=== PATIENT | female | born 1975 | race Caucasian/White ===

== ENCOUNTER 2018-07-01 08:31 | Emergency (ER) | payer SELFPAY ==
[~2018-07-01] VITALS: Ht 157.5 cm; Wt 80.0 kg
[~2018-07-01 08:31] MED LIST: BACTRIM DS1 TAB PO; CIPRO500 MG PO; FLEXERIL OR; KEFLEX500 M1 PO; LORTAB5 PO; NAPROSYN500 MG OR; NO HOMEMEDS; ULTRAM50 M1 PO; ULTRAM50 MG OR
[2018-07-01 09:23] LABS: HEMATOCRIT 34.5 % (37.0-47.0); HEMOGLOBIN 11.2 g/dl (12.0-16.0); IMMATURE GRANULOCYTES 0.2 % (0.0-5.0); MEAN CELL VOLUME 86.3 fL CALC (80.0-100.0); MEAN CORPUSCULAR HGB CONC 32.5 g/L CALC (32.0-36.0); NEUT# 4.62 thou/uL (2.00-7.15); RED CELL DISTRI WIDTH 15.1 % (11.5-15.5)
[2018-07-01 09:30] LABS: ANION GAP 12 (6-22 (CALC)); BUN 8 mg/dL (7-17); BUN/CREATININE RATIO 17 (12-20 (CALC)); CARBON DIOXIDE 23 mmol/l (22-30); CHLORIDE 109 mmol/l (95-108); CREATININE 0.5 mg/dL (0.5-1.0); GFR > 60 ML/MIN (>=60 (CALC)); GFR FOR AFR.AMER. > 60 ML/MIN (>=60 (CALC)); POTASSIUM 4.1 mmol/l (3.5-5.1); SODIUM 140 mmol/l (137-146)
[2018-07-01] MEDS ORDERED: PROVERA10 MG PO (14:36)
[2018-07-01 14:45] VITALS: BP 139/74
== END 2018-07-01 14:45 | disposition home or self-care (01) | DRG 761 ==
LOC: ED 08:31
PROVIDERS: Family Medicine
DX: N92.0 Excessive and frequent menstruation with regular cycle (principal); D25.9 Leiomyoma of uterus, unspecified; N83.9 Noninflammatory disorder of ovary, fallopian tube and broad ligament, unspecified; F17.210 Nicotine dependence, cigarettes, uncomplicated

== ENCOUNTER 2019-09-18 16:16 | Emergency (ER) | payer SELFPAY ==
[~2019-09-18] VITALS: Ht 157.5 cm; Wt 80.0 kg
[~2019-09-18 16:16] MED LIST changes: +PROVERA10 MG PO
[2019-09-18 17:19] LABS: URINE BILIRUBIN - DIPSTICK NEGATIVE (NEGATIVE); URINE BLOOD DIPSTICK SMALL (NEGATIVE); URINE COLOR YELLOW; URINE GLUCOSE - DIPSTICK NEGATIVE (NEGATIVE); URINE KETONE NEGATIVE (NEGATIVE); URINE LEUK ESTERASE TRACE (NEGATIVE); URINE NITRITE - DIPSTICK NEGATIVE (Negative); URINE PH 6.5 (4.5-8.0); URINE PROTEIN - DIPSTICK NEGATIVE (NEG-TRACE); URINE UROBILINOGEN - DIPSTICK 0.2 E.U./dL (0.2)
[2019-09-18 17:28] LABS: URINE SQUAMOUS EPITHELIAL CELL MODERATE EPI/hpf (0-FEW)
[2019-09-18] MEDS ORDERED: TORADOL PO (17:53)
[2019-09-18 18:07] VITALS: BP 146/93
== END 2019-09-18 18:10 | disposition home or self-care (01) | DRG 552 ==
LOC: ED 16:16
PROVIDERS: Family Medicine
DX: S33.5XXA Sprain of ligaments of lumbar spine, initial encounter (principal); F17.200 Nicotine dependence, unspecified, uncomplicated; X58.XXXA Exposure to other specified factors, initial encounter

== ENCOUNTER 2021-02-03 12:29 | Emergency (ER) | payer SELFPAY ==
[~2021-02-03] VITALS: Ht 157.5 cm; Wt 79.0 kg
[~2021-02-03 12:29] MED LIST changes: +TORADOL PO
[2021-02-03 14:07] LABS: URINE BILIRUBIN - DIPSTICK NEGATIVE (NEGATIVE); URINE BLOOD DIPSTICK SMALL (NEGATIVE); URINE COLOR YELLOW; URINE GLUCOSE - DIPSTICK NEGATIVE (NEGATIVE); URINE KETONE NEGATIVE (NEGATIVE); URINE LEUK ESTERASE NEGATIVE (NEGATIVE); URINE NITRITE - DIPSTICK NEGATIVE (Negative); URINE PH 5.5 (4.5-8.0); URINE PROTEIN - DIPSTICK NEGATIVE (NEG-TRACE); URINE SPECIFIC GRAVITY 1.015; URINE UROBILINOGEN - DIPSTICK 0.2 E.U./dL (0.2)
[2021-02-03 14:10] LABS: URINE EPITHELIAL CELLS FEW EPI/hpf (0-FEW)
[2021-02-03 14:48] LABS: IMMATURE GRANULOCYTES 0.2 % (0.0-5.0); MEAN CELL VOLUME 87.4 fL CALC (80.0-100.0); MEAN CORPUSCULAR HGB 27.7 pG CALC (26.0-32.0); MEAN CORPUSCULAR HGB CONC 31.7 g/dL CAL (32.0-36.0); NEUT# 5.09 thou/uL (2.00-7.15); RED BLOOD COUNT 4.69 mill/uL (4.20-5.60); RED CELL DISTRI WIDTH 15.5 % (11.5-15.5)
[2021-02-03 15:10] LABS: ALBUMIN 4.6 g/dL (3.2-5.0); ALKALINE PHOSPHATASE 84 u/l (38-126); ANION GAP 11 (6-22 (CALC)); BUN 7 mg/dL (7-17); BUN/CREATININE RATIO 12 (12-20 (CALC)); CARBON DIOXIDE 27 mmol/l (22-30); CHLORIDE 104 mmol/l (95-108); CREATININE 0.5 mg/dL (0.5-1.0); GFR > 60 ML/MIN (>=60 (CALC)); GFR FOR AFR.AMER. > 60 ML/MIN (>=60 (CALC)); POTASSIUM 4.2 mmol/l (3.5-5.1); SGOT/AST 30 u/l (14-36); SODIUM 138 mmol/l (137-146)
[2021-02-03 15:14] LABS: BILIRUBIN, TOTAL 0.5 mg/dL (0.0-1.4); TOTAL PROTEIN 8.1 g/dL (6.3-8.2)
[2021-02-03 17:03] VITALS: BP 148/81
[2021-02-03] MEDS ORDERED: TORADOL PO (17:07)
== END 2021-02-03 17:10 | disposition home or self-care (01) | DRG 392 ==
LOC: ED 12:29
DX: R10.31 Right lower quadrant pain (principal); R31.9 Hematuria, unspecified; F17.210 Nicotine dependence, cigarettes, uncomplicated

== ENCOUNTER 2021-08-03 13:55 | Emergency (ER) | payer SELFPAY ==
[~2021-08-03] VITALS: Ht 157.5 cm; Wt 68.2 kg
[2021-08-03 16:40] VITALS: BP 148/94
[2021-08-05] MEDS ORDERED: BACTRIM DS1 TAB PO (11:04)
== END 2021-08-03 16:40 | disposition home or self-care (01) | DRG 601 ==
LOC: ED 13:55
DX: N61.1 Abscess of the breast and nipple (principal); F17.210 Nicotine dependence, cigarettes, uncomplicated; Z91.14 Patient's other noncompliance with medication regimen

== ENCOUNTER 2021-11-30 11:56 | Emergency (ER) | payer SELFPAY ==
[~2021-11-30] VITALS: Ht 154.9 cm; Wt 77.2 kg
[2021-11-30] MEDS ORDERED: CEPHALEXIN500 MG PO (14:14)
[2021-11-30] MEDS ORDERED: BACTRIM DS1 TAB PO (14:14)
[2021-11-30 14:24] VITALS: BP 156/81
== END 2021-11-30 14:37 | disposition home or self-care (01) | DRG 601 ==
LOC: ED 11:56
DX: N61.0 Mastitis without abscess (principal); F17.210 Nicotine dependence, cigarettes, uncomplicated

== ENCOUNTER 2022-03-07 10:01 | Emergency (ER) | payer SELFPAY ==
[~2022-03-07] VITALS: Ht 154.9 cm; Wt 79.1 kg
[~2022-03-07 10:01] MED LIST changes: +CEPHALEXIN500 MG PO; +PERCOCET 5/325M1 TAB PO
[2022-03-07] MEDS ORDERED: HYZAAR1 TA1 PO (10:37)
[2022-03-07 10:45] LABS: HEMATOCRIT 46.3 % (37.0-47.0); IMMATURE GRANULOCYTES 0.1 % (0.0-5.0); MEAN CELL VOLUME 90.6 fL CALC (80.0-100.0); MEAN CORPUSCULAR HGB 29.5 pG CALC (26.0-32.0); MEAN CORPUSCULAR HGB CONC 32.6 g/dL CAL (32.0-36.0); NEUT# 4.49 thou/uL (2.00-7.15); RED BLOOD COUNT 5.11 mill/uL (4.20-5.60); RED CELL DISTRI WIDTH 13.6 % (11.5-15.5)
[2022-03-07 11:06] LABS: ALBUMIN 4.5 g/dL (3.2-5.0); ALKALINE PHOSPHATASE 91 u/l (38-126); ANION GAP 14 (6-22 (CALC)); BILIRUBIN, TOTAL 0.3 mg/dL (0.0-1.4); BUN 10 mg/dL (7-17); BUN/CREATININE RATIO 18 (12-20 (CALC)); CARBON DIOXIDE 22 mmol/l (22-30); CHLORIDE 106 mmol/l (95-108); CREATININE 0.6 mg/dL (0.5-1.0); GFR > 60 ML/MIN (>=60 (CALC)); GFR FOR AFR.AMER. > 60 ML/MIN (>=60 (CALC)); HEMOGLOBIN 15.1 g/dl (12.0-16.0); POTASSIUM 3.7 mmol/l (3.5-5.1); SGOT/AST 25 u/l (14-36); SODIUM 138 mmol/l (137-146); TOTAL PROTEIN 8.2 g/dL (6.3-8.2)
[2022-03-07 12:42] VITALS: BP 135/87
== END 2022-03-07 12:42 | disposition home or self-care (01) | DRG 313 ==
LOC: ED 10:01
PROVIDERS: Family Medicine
PROC: 0H95XZZ Drainage of Chest Skin, External Approach (ICD-10-PCS; principal; 2022-03-07)
DX: R07.9 Chest pain, unspecified (principal); N61.0 Mastitis without abscess; F17.200 Nicotine dependence, unspecified, uncomplicated

== ENCOUNTER 2022-06-27 13:06 | Emergency (ER) | payer BC ==
[2022-06-27] VITALS (7 sets, daily range): BP systolic 140–160; BP diastolic 78–115
[~2022-06-27] VITALS: Ht 154.9 cm; Wt 79.0 kg
[~2022-06-27 13:06] MED LIST changes: +HYZAAR1 TA1 PO
[2022-06-27] MEDS ORDERED: BACTRIM DS1 TAB PO ×2 (13:35→13:36)
[2022-06-27 13:40] LABS: HEMATOCRIT 44.1 % (37.0-47.0); HEMOGLOBIN 14.3 g/dl (12.0-16.0); IMMATURE GRANULOCYTES 0.2 % (0.0-5.0); MEAN CELL VOLUME 92.6 fL CALC (80.0-100.0); MEAN CORPUSCULAR HGB CONC 32.4 g/dL CAL (32.0-36.0); NEUT# 7.23 thou/uL (2.00-7.15); RED BLOOD COUNT 4.76 mill/uL (4.20-5.60); RED CELL DISTRI WIDTH 13.1 % (11.5-15.5)
[2022-06-27 14:00] LABS: ALBUMIN 4.2 g/dL (3.2-5.0); ALKALINE PHOSPHATASE 86 u/l (38-126); ANION GAP 12 (6-22 (CALC)); BILIRUBIN, TOTAL 0.3 mg/dL (0.0-1.4); BUN 11 mg/dL (7-17); BUN/CREATININE RATIO 22 (12-20 (CALC)); CARBON DIOXIDE 25 mmol/l (22-30); CHLORIDE 105 mmol/l (95-108); CREATININE 0.5 mg/dL (0.5-1.0); GFR FOR AFR.AMER. > 60 ML/MIN (>=60 (CALC)); GFR OTHER RACES > 60 ML/MIN (>=60 (CALC)); SGOT/AST 19 u/l (14-36); SODIUM 138 mmol/l (137-146); TOTAL PROTEIN 7.5 g/dL (6.3-8.2)
[2022-06-27] MEDS ORDERED: ULTRAM50 M1 PO (16:44)
[2022-06-27] MEDS ORDERED: VIBRAMYCIN100 M2 PO (16:44)
[2022-06-27] MEDS ORDERED: AMOX/K CLAV875 M1 PO (16:44)
== END 2022-06-27 17:27 | disposition left against medical advice (07) | DRG 601 ==
LOC: ED 13:06 → ED-I 16:00 → ED 17:27
PROVIDERS: Nurse Practitioner
DX: N61.1 Abscess of the breast and nipple (principal); R10.13 Epigastric pain; I10 Essential (primary) hypertension; F17.200 Nicotine dependence, unspecified, uncomplicated; Z91.19 Patient's noncompliance with other medical treatment and regimen
CPT/HCPCS: J0692; S0164

== ENCOUNTER 2023-05-15 10:03 | Emergency (ER) | payer MEDICAID ==
[2023-05-15] VITALS (12 sets, daily range): BP systolic 131–162; BP diastolic 83–100
[~2023-05-15] VITALS: Ht 154.9 cm; Wt 79.0 kg
[~2023-05-15 10:03] MED LIST changes: +AMOX/K CLAV875 M1 PO; +VIBRAMYCIN100 M2 PO
[2023-05-15 11:27] LABS: BASO% 0.5 % (0-3); IMMATURE GRANULOCYTES 0.1 % (0.0-5.0); MEAN CELL VOLUME 90.9 fL CALC (80.0-100.0); MEAN CORPUSCULAR HGB 29.6 pG CALC (26.0-32.0); MEAN CORPUSCULAR HGB CONC 32.6 g/dL CAL (32.0-36.0); MONO% 7.2 % (2-13); NEUT# 5.22 thou/uL (2.00-7.15); NEUT% 59.2 % (42-76); RED BLOOD COUNT 5.06 mill/uL (4.20-5.60); RED CELL DISTRI WIDTH 13.1 % (11.5-15.5)
[2023-05-15] MEDS ORDERED: IBUPROFEN600 MG PO (13:33)
== END 2023-05-15 13:48 | disposition home or self-care (01) ==
LOC: ED 10:03
PROVIDERS: Family Medicine
DX: M79.642 Pain in left hand (principal); I10 Essential (primary) hypertension

== ENCOUNTER 2024-08-15 16:50 | Emergency (ER) | payer MEDICAID ==
[~2024-08-15] VITALS: Ht 157.5 cm; Wt 79.1 kg
[2024-08-15] VITALS (12 sets, daily range): BP systolic 112–147; BP diastolic 67–80
[~2024-08-15 16:50] MED LIST changes: +ASPIRINCHW 81MG PO; +ATORVASTATIN CA20 MG PO; +HYZAAR1 TAB PO; +IBUPROFEN600 MG PO
[2024-08-15] MEDS ORDERED: oxyCODONE 5MG/ ACETAMINOPHEN 325MG TAB PO ONE (17:10)
[2024-08-15] MEDS ORDERED: KEFLEX500 MG PO (19:34)
[2024-08-15] MEDS ORDERED: PERCOCET 5/321 COMBO PO (19:34)
[2024-08-15] MEDS ORDERED: CEPHALEXIN MONOHYDRATE 500 MG/CAP PO ONE (19:35)
== END 2024-08-15 19:53 | disposition home or self-care (01) ==
LOC: ED 16:50
DX: N61.0 Mastitis without abscess (principal); I10 Essential (primary) hypertension; F17.200 Nicotine dependence, unspecified, uncomplicated